=== PATIENT | male | born 1990 | race Caucasian/White ===

== ENCOUNTER → 2016-05-14 | Outpatient (CLI) | payer OTHER ==
[~2016-05-14] MED LIST: LACT3000 PO
--- NOTE | 2016-05-14 15:12 | DIAGNOSTIC IMAGING REPORT ---
MRI OF THE LEFT HIP WITHOUT IV CONTRAST CLINICAL HISTORY: Left hip pain of several months duration. COMPARISON STUDY: Pelvic CT dated 09/01/2013 with pelvic and hip radiographs dated 04/01/2016. TECHNIQUE: MRI of the left hip is performed utilizing various T1 and T2-weighted sequences in the axial and coronal planes. IV contrast was not administered for this examination. FINDINGS: Normal marrow signal intensity is preserved throughout the visualized bony structures. There is no MRI evidence of fracture or osteonecrosis involving the proximal femora. The visualized bony pelvis is normal in appearance. No destructive bony lesion is seen. No hip joint effusion is identified. There is no greater trochanteric or iliopsoas bursitis. The origin of the hamstrings tendons is maintained. The musculature of the pelvis and upper thigh is normal in bulk and signal intensity. The pelvic viscera is normal as imaged. There is no pelvic sidewall or inguinal lymphadenopathy. IMPRESSION: Unremarkable MRI of the left hip. Dictated: 05/14/2016 3:04 PM Transcribed: 05/14/2016 3:12 PM [email or web address]_Tre Electronically signed by: Trevor Reed M.D. 05/14/2016 3:16 PM Dictated Date/Time: 05/14/2016 3:04 PM
== END | disposition home or self-care (01) ==
LOC: C.MRI 14:13
PROVIDERS: ATTEND Family Medicine Sports Medicine
DX: M25.552 Pain in left hip (principal)

== ENCOUNTER → 2017-04-02 | Outpatient (CLI) | payer OTHER ==
[2017-04-02 17:07] LABS: URINE APPEARANCE CLEAR (CLEAR); URINE BILIRUBIN NEG (NEG); URINE COLOR YELLOW; URINE EPITHELIAL CELL AUTO 0-5 /lpf (0-5); URINE NITRITE NEG (NEG); URINE SPECIFIC GRAVITY 1.024 (1.000-1.030); UROBILINOGEN NEG (NEG)
[2017-04-02 17:12] LABS: MANUAL MICROSCOPIC REQUIRED? NO; REVIEW REQ? NO
[2017-04-02 17:33] LABS: LYME DISEASE AB IGG NEG (NEG); LYME DISEASE AB IGM NEG (NEG)
[2017-04-06 02:05] LABS: CHLAMYDIA TRACH RNA*** NOT DETECTED (NOT DETECTED); GC (NEIS GONORRHOEAE)RNA** NOT DETECTED (NOT DETECTED)
== END | disposition home or self-care (01) ==
LOC: C.LABBFT 15:14
PROVIDERS: ATTEND Internal Medicine
DX: N45.1 Epididymitis (principal); T14.8XXA Other injury of unspecified body region, initial encounter; W57.XXXA Bitten or stung by nonvenomous insect and other nonvenomous arthropods, initial encounter

== ENCOUNTER 2022-02-23 07:16 | Observation (INO) ==
[2022-02-23] MEDS ORDERED: ONDANSETRON INJ 2 MG/ML 2 ML VIAL IV STA (07:30)
[2022-02-23] MEDS ORDERED: MoRPHine SULFATE 10 MG/ML CARP/VIAL IV STA (07:30)
[2022-02-23] MEDS ORDERED: SODIUM CHLORIDE 0.9% 1000ML 1,000 ML IV STA (07:30)
--- NOTE | 2022-02-23 07:56 | Emergency Department Note ---
History of Present Illness General Chief complaint: Abdominal Pain Stated complaint: SEVERE LWR RIGHT ABDOMINAL PAIN Time Seen by Provider: 02/23/22 07:21 History of Present Illness Maximum Pain Intensity: 7 31-year-old male who presents to the emergency department with complaint of severe right lower quadrant abdominal pain. The patient reports that the pain started last evening, and has progressively worsened. He describes it as a sharp constant pain with nausea and chills. The pain is worse with ambulation. He felt every bump at the road on the way to the emergency department. He denies any significant alleviating factors for his pain. He reports that it feels like he has to constantly defecate. He denies any change in stool bowel, color or consistency. He also denies any left-sided abdominal pain, back pain or urinary symptoms. Patient denies history of GI disease. He rates his discomfort a 7 out of 10. Home Medications Medication Instructions Recorded Confirmed Type gabapentin 400 mg capsule 400 mg PO TID 02/23/22 02/23/22 History Allergies Allergy/AdvReac Type Severity Reaction Status Date / Time No Known Allergies Allergy Verified 10/01/21 14:09 Past Med/Surg History Medical History Chronic back pain TO RIGHT LEG History of COVID-19 diagnosed 02/2020-URGENT CARE-MILD SYMPTOMS, RECOVERED AT HOME-no issues now Surgical History History of colonoscopy with polypectomy last 2018 History of esophagogastroduodenoscopy (EGD) History of wisdom tooth extraction S/P epidural steroid injection Family History Unknown Pure hypercholesterolemia Father Tuberculosis Obesity Mother Thyroid disorder Grandfather Gastrointestinal disorder Grandfather (Maternal) Family history of diabetes mellitus Family hx of colon cancer Grandfather (Paternal) Family history of diabetes mellitus Other No family history of adverse response to anesthesia Social History Smoking Status: Never smoker Second Hand Exposure: No; Hx Alcohol Use: Yes Alcohol type: beer Hx Substance Use: No Preferred Language: Persian Communication Ability: Effective Arborist Required: No Beliefs That Will Affect Care: None Current Living Situation: Alone current occupational status: employed Feels Safe at Home: Yes Assistive Devices: None Review of Systems 10 system review was performed and was negative except for pertinent positives and negatives as indicated in history of present illness Physical Exam Vital Signs Vital Signs - 24 hr 02/23/22 07:17 02/23/22 07:49 02/23/22 08:00 Temperature 36.8 C Temperature Source Temporal Artery Scan Pulse Rate 84 62 Pulse Rate [Right Finger] Pulse Rhythm [Right Finger] Pulse Strength [Right Finger] Respiratory Rate 18 18 Respiratory Effort / Characteristics Non-Labored Spontaneous Respiratory Depth Normal Respiratory Pattern Regular Blood Pressure 124/79 122/84 Blood Pressure [Right Arm] Blood Pressure Mean 94 96 Blood Pressure Mean [Right Arm] Blood Pressure Position Sitting Blood Pressure Position [Right Arm] Pulse Oximetry 96 96 Oxygen Delivery Method Room Air Room Air Sepsis Recent Fever Within 48 Hours No Sepsis New/Unexplained Change in Mental Status N/A Sepsis Action Taken by Nursing No Action Required 02/23/22 08:00 02/23/22 08:15 02/23/22 08:30 Temperature Temperature Source Pulse Rate 76 70 66 Pulse Rate [Right Finger] Pulse Rhythm [Right Finger] Pulse Strength [Right Finger] Respiratory Rate 13 15 15 Respiratory Effort / Characteristics Respiratory Depth Respiratory Pattern Blood Pressure Blood Pressure [Right Arm] Blood Pressure Mean Blood Pressure Mean [Right Arm] Blood Pressure Position Blood Pressure Position [Right Arm] Pulse Oximetry 93 96 97 Oxygen Delivery Method Room Air Room Air Room Air Sepsis Recent Fever Within 48 Hours Sepsis New/Unexplained Change in Mental Status Sepsis Action Taken by Nursing 02/23/22 08:45 02/23/22 09:08 02/23/22 09:15 Temperature Temperature Source Pulse Rate 58 L 84 63 Pulse Rate [Right Finger] Pulse Rhythm [Right Finger] Pulse Strength [Right Finger] Respiratory Rate 16 22 16 Respiratory Effort / Characteristics Respiratory Depth Respiratory Pattern Blood Pressure Blood Pressure [Right Arm] Blood Pressure Mean Blood Pressure Mean [Right Arm] Blood Pressure Position Blood Pressure Position [Right Arm] Pulse Oximetry 97 Oxygen Delivery Method Room Air Sepsis Recent Fever Within 48 Hours Sepsis New/Unexplained Change in Mental Status Sepsis Action Taken by Nursing 02/23/22 09:30 02/23/22 10:16 02/23/22 10:30 Temperature Temperature Source Pulse Rate 56 L 67 61 Pulse Rate [Right Finger] Pulse Rhythm [Right Finger] Pulse Strength [Right Finger] Respiratory Rate 13 12 13 Respiratory Effort / Characteristics Respiratory Depth Respiratory Pattern Blood Pressure Blood Pressure [Right Arm] Blood Pressure Mean Blood Pressure Mean [Right Arm] Blood Pressure Position Blood Pressure Position [Right Arm] Pulse Oximetry 97 93 Oxygen Delivery Method Room Air Room Air Room Air Sepsis Recent Fever Within 48 Hours Sepsis New/Unexplained Change in Mental Status Sepsis Action Taken by Nursing 02/23/22 11:00 02/23/22 11:30 02/23/22 12:00 Temperature Temperature Source Pulse Rate 69 66 78 Pulse Rate [Right Finger] Pulse Rhythm [Right Finger] Pulse Strength [Right Finger] Respiratory Rate 15 14 16 Respiratory Effort / Characteristics Respiratory Depth Respiratory Pattern Blood Pressure Blood Pressure [Right Arm] Blood Pressure Mean Blood Pressure Mean [Right Arm] Blood Pressure Position Blood Pressure Position [Right Arm] Pulse Oximetry 98 99 99 Oxygen Delivery Method Room Air Room Air Room Air Sepsis Recent Fever Within 48 Hours Sepsis New/Unexplained Change in Mental Status Sepsis Action Taken by Nursing 02/23/22 13:00 Temperature 36.7 C Temperature Source Oral Pulse Rate Pulse Rate [Right Finger] 96 H Pulse Rhythm [Right Finger] Regular Pulse Strength [Right Finger] Normal Respiratory Rate 20 Respiratory Effort / Characteristics Non-Labored Spontaneous Respiratory Depth Normal Respiratory Pattern Regular Blood Pressure Blood Pressure [Right Arm] 137/83 Blood Pressure Mean Blood Pressure Mean [Right Arm] 101 Blood Pressure Position Blood Pressure Position [Right Arm] Semi-fowlers Pulse Oximetry 98 Oxygen Delivery Method Room Air Sepsis Recent Fever Within 48 Hours Sepsis New/Unexplained Change in Mental Status Sepsis Action Taken by Nursing CONSTITUTIONAL: Healthy and well nourished. Patient appears in moderate discomfort from pain. HEENT: No scleral icterus or conjunctival injection/pallor. RESPIRATORY: Clear to auscultation bilaterally with no wheezing, crackles, rhonchi or stridor. CARDIOVASCULAR: Regular rate and rhythm with no murmurs, rubs or gallops. GASTROINTESTINAL: Bowel sounds present in all quadrants. Patient has a dramatically positive McBurney's point tenderness. Negative Rovsing sign. Positive psoas/obturator sign and heeltap. Negative CVA tenderness. No abd ominal rigidity, guarding or rebound. MUSCULOSKELETAL: Full range of motion of all joints without discomfort. INTEGUMENTARY: No rash or other significant dermatologic conditions noted. HEMATOLOGIC: No ecchymosis or petechiae. PSYCHIATRIC: Positive affect. NEUROLOGIC: No focal neurologic deficits noted. Course Course Patient history and physical exam were performed. Nurses notes were reviewed. Vital signs were reviewed and were normal. IV access was established, labs were drawn. The patient was administered IV morphine and Zofran. He was also hydrated with a liter of normal saline. Review of labs shows a white count of almost 13,000 with left shift and 7% bands. CMP and lipase were grossly normal. The patient was initially unable to provide a urine sample for urinalysis. CT with IV contrast of the abdomen and pelvis shows an uncomplicated appendicitis. After returning from CT scan, the patient was administered additional IV Dilaudid for pain control. The patient was advised of his CT findings. COVID- 19 test was ordered. Findings were discussed with Dr. Landon, ED physician, and Dr. Goldman, general surgeon on-call. Please see Dr. Goldman's dictation for further treatment and final disposition. Administered Medications Discontinued Medications Bupivacaine HCl (Bupivacaine 0.5 % 5 Mg/1 Ml Mpf 30ml Vial) Confirm Administered Dose 30 ml .ROUTE .STK-MED ONE Stop: 02/23/22 12:52 Last Admin: 02/23/22 14:19 Dose: 14 ml Documented By: SANCHEZ Hydromorphone HCl (Hydromorphone Inj 0.5 Mg/0.5 Ml Syr) 0.5 mg IV NOW STA Stop: 02/23/22 09:21 Last Admin: 02/23/22 10:16 Dose: 0.5 mg Documented By: JANNET Sodium Chloride (Nss 1000ml) 1,000 mls @ 999 mls/hr IV .Q1H1M STA Stop: 02/23/22 08:30 Last Infusion: 02/23/22 08:54 Dose: 0 mls/hr Documented By: Admin: 02/23/22 07:47 Dose: 999 mls/hr Documented By: JANNET Cefoxitin Sodium (Mefoxin) 2,000 mg in 60 mls @ 100 mls/hr IV NOW ONE Stop: 02/23/22 11:35 Last Infusion: 02/23/22 12:12 Dose: 0 mls/hr Documented By: Admin: 02/23/22 11:25 Dose: 100 mls/hr Documented By: JANNET Ioversol (Optiray 350 100ml) 94 ml IV ONCE ONE Stop: 02/23/22 09:04 Last Admin: 02/23/22 09:04 Dose: 94 ml Documented By: LISA Morphine Sulfate (Morphine Sulfate 10 Mg/Ml Carp/Vial) 6 mg IV NOW STA Stop: 02/23/22 07:31 Last Admin: 02/23/22 07:48 Dose: 6 mg Documented By: JANNET Ondansetron HCl (Ondansetron Inj 2 Mg/Ml 2 Ml Vial) 4 mg IV NOW STA Stop: 02/23/22 07:31 Last Admin: 02/23/22 07:47 Dose: 4 mg Documented By: JANNET Medical Decision Making Medical Records Attestation: I reviewed the patient's medical records. Home Medications Current Medication List: was personally reviewed by me Laboratory Data Attestation: I reviewed the patient's lab results. Result diagrams: 02/23/22 07:45 02/23/22 07:45 Lab Results 02/23/22 02/23/22 Range/Units 07:45 07:45 WBC 12.98 H (4.8-10.8) K/ul RBC 4.94 (4.63-6.08) M/uL Hgb 15.1 (14.0-18.0) g/dl Hct 44.6 (40.1-51.0) % MCV 90.3 (80.0-100.0) fL MCH 30.6 (25.0-34.0) pg MCHC 33.9 (32.0-36.0) g/dL RDW Std Deviation 39.6 (36.4-46.3) fL RDW Coeff of Monico 12.1 (11.5-14.5) % Plt Count 227 (130-400) K/uL MPV 9.5 (9.4-12.4) fL Immature Gran % (Auto) 0.5 % Neut % (Auto) 78.4 % Lymph % (Auto) 13.1 % Antelope % (Auto) 7.1 % Eos % (Auto) 0.5 % Baso % (Auto) 0.4 % Neut # (Auto) 10.17 H (1.4-6.5) K/uL Lymph # (Auto) 1.70 (1.2-3.4) K/uL Antelope # (Auto) 0.92 H (0.24-0.82) K/uL Eos # (Auto) 0.07 (0-0.50) K/uL Baso # (Auto) 0.05 (0-0.2) K/uL Immature Gran # (Auto) 0.07 H (0.00-0.02) K/uL Sodium 138 (136-145) mmol/L Potassium 4.1 (3.5-5.1) mmol/L Chloride 101 (98-107) mmol/L Carbon Dioxide 32 (21-32) mmol/L Anion Gap 5 (3-11) BUN 19 (6-23) mg/dl Creatinine 0.95 (0.6-1.4) mg/dl Est Cr Clr Drug Dosing 128.4 ml/min Est GFR ( Amer) 124.9 ml/min Est GFR (Non-Af Amer) 107.7 ml/min BUN/Creatinine Ratio 20.0 (10-20) Glucose 109 H (70-99(Fasting)) mg/dl Calcium 9.5 (8.5-10.1) mg/dl Total Bilirubin 0.6 (0.2-1.0) mg/dl AST 20 (13-39) U/L ALT 10 (7-52) U/L Alkaline Phosphatase 66 (34-104) U/L Total Protein 7.6 (6.0-8.3) gm/dl Albumin 4.4 (3.4-5.0) gm/dl Globulin 3.2 (2.5-4.0) gm/dl Albumin/Globulin Ratio 1.4 (0.9-2) Lipase 14 (11-82) U/L Imaging Data Attestation: I personally reviewed and interpreted this imaging study as follows: My Impression: My interpretation of a CT with IV contrast of the abdomen pelvis shows evidence for an uncomplicated appendicitis without perforation or abscess formation. Radiologist report was also reviewed. Radiologist's Impression: Abdomen/Pelvis CT 02/23/22 07:30 CT OF THE ABDOMEN AND PELVIS WITH CONTRAST CLINICAL HISTORY: Right lower quadrant abdominal pain. COMPARISON STUDY: Abdominal series April 18, [address] of the abdomen and pelvis September 01, 2013. TECHNIQUE: Following IV administration of 94 mL of Optiray, axial images of the abdomen and pelvis were obtained from the lung bases to the proximal femurs. I mages were reviewed in the axial, sagittal, and coronal planes. IV contrast was administered without complication. Automated exposure control was utilized for the study. A dose lowering technique was utilized adhering to the principles of ALARA. CT DOSE: 421.43 mGy.cm FINDINGS: Lung bases are unremarkable. There is no pneumatosis, free air or portal venous gas is present. There is borderline splenomegaly. Liver, adrenal glands, kidneys and pancreas are unremarkable. Is no hydronephrosis. There is no evidence for a bowel obstruction. Caliber and wall thickness of small and large bowel are normal. Prominent perirectal vessels are unchanged. The appendix is mildly dilated and fluid-filled, measuring 1 cm in caliber. There is an appendicolith within the base of the appendix. There is mild periappendiceal stranding. There is no free air or abscess. IMPRESSION: Findings consistent with acute appendicitis. No free air or abscess. ACT 112: Negative or not required by law. Electronically signed by: Simon King M.D. 02/23/2022 9:47 AM Blood Pressure Blood Pressure Findings: Normal blood pressure MDM Narrative Patient presents emergency department with classic symptoms consistent with acute appendicitis. CT imaging does verify this diagnosis. Patient does have a mild leukocytosis with left shift and bandemia. He is afebrile. Clinical exam is not concerning for generalized peritonitis. Additional laboratory studies are not consistent with cholecystitis, hepatitis or pancreatitis. At the time of this dictation, urinalysis was still pending, however symptoms are not consistent with UTI. Impression & Plan Acute appendicitis, Acute abdominal pain in right lower quadrant Discharge Plan Visit Data Chief Complaint: Abdominal Pain Stated Complaint: SEVERE LWR RIGHT ABDOMINAL PAIN ED Provider: Barney Landon ED Midlevel Provider: Marco Antonio Flores Discharge Problem: Acute appendicitis, Acute abdominal pain in right lower quadrant Discharge Instructions Interventions: ED Discharge Assessment Last Done: 02/23/22 13:27
[2022-02-23 07:57] LABS: Basophils # (auto) 0.05 K/uL (0-0.2); Basophils % (auto) 0.4 %; Eosinophils # (auto) 0.07 K/uL (0-0.50); Eosinophils % (auto) 0.5 %; Hematocrit (blood only) 44.6 % (40.1-51.0); Hemoglobin 15.1 g/dl (14.0-18.0); Immature Granulocytes # (auto) 0.07 K/uL (0.00-0.02); Immature Granulocytes % (auto) 0.5 %; Lymphocytes % (auto) 13.1 %; Mean Corpuscular Hemoglobin 30.6 pg (25.0-34.0); Mean Corpuscular Hgb Conc 33.9 g/dL (32.0-36.0); Mean Corpuscular Volume 90.3 fL (80.0-100.0); Mean Platelet Volume 9.5 fL (9.4-12.4); Monocytes # (auto) 0.92 K/uL (0.24-0.82); Monocytes % (auto) 7.1 %; Neutrophils # (auto) 10.17 K/uL (1.4-6.5); Neutrophils % (auto) 78.4 %; Platelet Count 227 K/uL (130-400); RDW Coefficient of Variation 12.1 % (11.5-14.5); RDW Standard Deviation 39.6 fL (36.4-46.3); Red Blood Count 4.94 M/uL (4.63-6.08); White Blood Count 12.98 K/ul (4.8-10.8)
[2022-02-23 08:21] LABS: Albumin Globulin Ratio 1.4 (0.9-2); Albumin Level 4.4 gm/dl (3.4-5.0); Bilirubin,Total 0.6 mg/dl (0.2-1.0); Calcium 9.5 mg/dl (8.5-10.1); Creatinine Clr Calc Pharmacy 128.4 ml/min; Est GFR (African American) 124.9 ml/min; Est GFR (Non-African American) 107.7 ml/min; Globulin 3.2 gm/dl (2.5-4.0); Potassium 4.1 mmol/L (3.5-5.1); Total Protein 7.6 gm/dl (6.0-8.3)
[2022-02-23] MEDS ORDERED: OPTIRAY 350 100ml IV ONE (09:03)
[2022-02-23] MEDS ORDERED: HYDROmorphone INJ 0.5 MG/0.5 ML SYR IV STA (09:20)
--- NOTE | 2022-02-23 09:49 | CT Scan Report ---
CT OF THE ABDOMEN AND PELVIS WITH CONTRAST CLINICAL HISTORY: Right lower quadrant abdominal pain. COMPARISON STUDY: Abdominal series April 18, [address] of the abdomen and pelvis September 01, 2013. TECHNIQUE: Following IV administration of 94 mL of Optiray, axial images of the abdomen and pelvis we re obtained from the lung bases to the proximal femurs. Images were reviewed in the axial, sagittal, and coronal planes. IV contrast was administered without complication. Automated exposure control wa s utilized for the study. A dose lowering technique was utilized adhering to the principles of ALARA . CT DOSE: 421.43 mGy.cm FINDINGS: Lung bases are unremarkable. There is no pneumatosis, free air or portal venous gas is pres ent. There is borderline splenomegaly. Liver, adrenal glands, kidneys and pancreas are unremarkable. Is no hydronephrosis. There is no evidence for a bowel obstruction. Caliber and wall thickness of sma ll and large bowel are normal. Prominent perirectal vessels are unchanged. The appendix is mildly dil ated and fluid-filled, measuring 1 cm in caliber. There is an appendicolith within the base of the ap pendix. There is mild periappendiceal stranding. There is no free air or abscess. IMPRESSION: Findings consistent with acute appendicitis. No free air or abscess. ACT 112: Negative or not required by law. Electronically signed by: Simon King M.D. 02/23/2022 9:47 AM
[2022-02-23 10:33] LABS: Appearance Urine Clear (Clear); Bilirubin Urine Negative (Negative); Blood Urine Negative (Negative); Color Urine Yellow; Glucose Urine UA Negative (Negative); Ketones Urine 1+ (Negative); Leukocyte Esterase Urine Negative (Negative); Nitrite Urine Negative (Negative); Protein Urine Negative (Negative); Specific Gravity Urine > 1.045 (1.000-1.030); Urobilinogen Urine Negative (Negative)
[2022-02-23] MEDS ORDERED: cefOXitin 2,000 MG/60 ML BAG IV ONE (11:00)
[2022-02-23] MEDS ORDERED: HYDROmorphone INJ 1 MG/ML SYRINGE IV PRN (12:50)
[2022-02-23] MEDS ORDERED: fentaNYL citrate 100 MCG/2 ML VIAL IV PRN (12:50)
[2022-02-23] MEDS ORDERED: ePHEDrine sulfate 50 MG/ML AMP IV PRN (12:50)
[2022-02-23] MEDS ORDERED: LABETALOL HCL IV 5 MG/ML 20ML IV PRN (12:50)
[2022-02-23] MEDS ORDERED: PHENYLEPHRINE 100MCG/ML 5ML SYR IV PRN (12:50)
[2022-02-23] MEDS ORDERED: MEPERIDINE HCL 25 MG/ML CARP/VIAL IV PRN (12:50)
[2022-02-23] MEDS ORDERED: ONDANSETRON INJ 2 MG/ML 2 ML VIAL IV PRN ×2 (12:50→15:43)
[2022-02-23] MEDS ORDERED: ATROPINE SULFATE 0.1 MG/ML 10ML SYR IV PRN (12:50)
[2022-02-23] MEDS ORDERED: BUPIVACAINE 0.5 % 5 MG/1 ML MPF 30ML VIAL ONE (12:51)
--- NOTE | 2022-02-23 12:53 | Anesthesiology Consultation ---
Date of Service February 23, 2022 Assessment & Plan (1) Encounter for pre-operative examination: Chart Review Chart Review: Acceptable Risk for Surgery and Patient NOT seen in Pre Admission Testing Consults Requested none History Surgery Operation Date: 02/23/22 12:20 Proposed Procedures p Laparoscopic Appendectomy - Kel Goldman MD Height/Weight Height: 5 ft 10 in Weight: 88.3 kg Allergies Allergy/AdvReac Type Severity Reaction Status Date / Time No Known Allergies Allergy Verified 10/01/21 14:09 Medications Home Medications Medication Instructions Recorded Confirmed Last Taken gabapentin 400 mg capsule 400 mg PO TID 02/23/22 02/23/22 Unknown Past Medical History Medical History Chronic back pain TO RIGHT LEG History of COVID-19 diagnosed 02/2020-URGENT CARE-MILD SYMPTOMS, RECOVERED AT HOME-no issues now Past Family History Family History Unknown Pure hypercholesterolemia Father Tuberculosis Obesity Mother Thyroid disorder Grandfather Gastrointestinal disorder Grandfather (Maternal) Family history of diabetes mellitus Family hx of colon cancer Grandfather (Paternal) Family history of diabetes mellitus Other No family history of adverse response to anesthesia Past Surgical History Surgical History History of colonoscopy with polypectomy last 2018 History of esophagogastroduodenoscopy (EGD) History of wisdom tooth extraction S/P epidural steroid injection Social History Smoking Status: Never smoker Hx Alcohol Use: Yes Alcohol type: beer alcohol intake frequency: a few times a month Hx Substance Use: No substance use type: does not use Physical Exam Vital Signs Last Vital Signs Temp 36.8 C 02/23/22 07:17 Pulse 78 02/23/22 12:00 Resp 16 02/23/22 12:00 BP 122/84 02/23/22 08:00 Pulse Ox 99 02/23/22 12:00 O2 Del Method 02/23/22 12:00 Testing Laboratory Results 02/23/22 07:45 02/23/22 07:45 Urine Color Yellow 02/23/22 Unknown Urine Appearance Clear (Clear) 02/23/22 Unknown Urine pH 6.0 (4.5-7.5) 02/23/22 Unknown Ur Specific Grethel > 1.045 (1.000-1.030) H 02/23/22 Unknown Urine Protein Negative (Negative) 02/23/22 Unknown Urine Glucose (UA) Negative (Negative) 02/23/22 Unknown Urine Ketones 1+ (Negative) H 02/23/22 Unknown Urine Nitrite Negative (Negative) 02/23/22 Unknown Ur Leukocyte Esterase Negative (Negative) 02/23/22 Unknown
[2022-02-23] MEDS ORDERED: MIDAZOLAM HCL 1 MG/ML 2ML VIAL ONE (12:57)
[2022-02-23] MEDS ORDERED: fentaNYL citrate 100 MCG/2 ML VIAL ONE ×2 (12:57→12:58)
--- NOTE | 2022-02-23 13:00 | History & Physical Report ---
Date of Service February 23, 2022 Assessment & Plan (1) Acute appendicitis: Plan 31-year-old gentleman with acute appendicitis. Discussed the risks and benefits of laparoscopic appendectomy, possible open. All his questions were answered, he is agreeable to proceed. Consent has been obtained. We will take him to the operating room at the earliest convenience. History of Present Illness Primary Care Provider: Alberto Tinsley MD 31-year-old gentleman presents with right lower quadrant abdominal pain beginning last night at 11 PM. He states that this is worsened throughout the night and into this morning. It was accompanied by fevers and chills. He did have nausea and vomiting. He denies any diarrhea or constipation. He has never had abdominal surgery. He recently had a surgery on his back. He denies any other complaints. Allergies Allergy/AdvReac Type Severity Reaction Status Date / Time No Known Allergies Allergy Verified 10/01/21 14:09 Home Medications Medication Instructions Recorded Confirmed Type gabapentin 400 mg capsule 400 mg PO TID 02/23/22 02/23/22 History Past Med/Surg History Medical History Chronic back pain TO RIGHT LEG History of COVID-19 diagnosed 02/2020-URGENT CARE-MILD SYMPTOMS, RECOVERED AT HOME-no issues now Surgical History History of colonoscopy with polypectomy last 2018 History of esophagogastroduodenoscopy (EGD) History of wisdom tooth extraction S/P epidural steroid injection Family History Unknown Pure hypercholesterolemia Father Tuberculosis Obesity Mother Thyroid disorder Grandfather Gastrointestinal disorder Grandfather (Maternal) Family history of diabetes mellitus Family hx of colon cancer Grandfather (Paternal) Family history of diabetes mellitus Other No family history of adverse response to anesthesia Social History Smoking Status: Never smoker Second Hand Exposure: No; Hx Alcohol Use: Yes Alcohol type: beer Hx Substance Use: No Preferred Language: Romanian Communication Ability: Effective 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 Beliefs That Will Affect Care: None Current Living Situation: Alone current occupational status: employed Feels Safe at Home: Yes Assistive Devices: None Review of Systems Review of Systems: All systems reviewed & are unremarkable except as noted in HPI & below Physical Exam Constitutional: WD/WN, vitals as above Eyes: PERRL, conjunctivae normal, anicteric sclerae Neck: trachea midline, no thyromegaly Respiratory: normal respiratory effort, lungs clear to auscultation Cardiovascular: RRR, no murmur, no edema Gastrointestinal (Abdomen): Inspection/Auscultation: abdomen normal to inspection; abdomen not distended Percussion/Palpation: + abdomen tender (Diffusely; maximal in right lower quadrant) and abdomen soft; no guarding and abdomen not rigid Skin: no rashes, warm and dry Psychiatric: A+Ox3, euthymic affect Results & Data Results & Data ([facility]) Vital Signs (Past 12 Hours) Vital Signs Temp Pulse Resp BP Pulse Ox O2 Del Method 02/23/22 12:00 78 16 99 Room Air 02/23/22 11:30 66 14 99 Room Air 02/23/22 11:00 69 15 98 Room Air 02/23/22 10:30 61 13 93 Room Air 02/23/22 10:16 67 12 97 Room Air 02/23/22 09:30 56 L 13 Room Air 02/23/22 09:15 63 16 02/23/22 09:08 84 22 02/23/22 08:45 58 L 16 97 Room Air 02/23/22 08:30 66 15 97 Room Air 02/23/22 08:15 70 15 96 Room Air 02/23/22 08:00 76 13 93 Room Air 02/23/22 08:00 122/84 02/23/22 07:49 62 18 96 Room Air 02/23/22 07:17 36.8 C 84 18 124/79 96 Room Air Laboratory Results 02/23/22 02/23/22 02/23/22 Range/Units Unknown Unknown 07:45 WBC (4.8-10.8) K/ul RBC (4.63-6.08) M/uL Hgb (14.0-18.0) g/dl Hct (40.1-51.0) % MCV (80.0-100.0) fL MCH (25.0-34.0) pg MCHC (32.0-36.0) g/dL RDW Std Deviation (36.4-46.3) fL RDW Coeff of Monico (11.5-14.5) % Plt Count (130-400) K/uL MPV (9.4-12.4) fL Immature Gran % (Auto) % Neut % (Auto) % Lymph % (Auto) % [place] % (Auto) % Eos % (Auto) % Baso % (Auto) % Neut # (Auto) (1.4-6.5) K/uL Lymph # (Auto) (1.2-3.4) K/uL [place] # (Auto) (0.24-0.82) K/uL Eos # (Auto) (0-0.50) K/uL Baso # (Auto) (0-0.2) K/uL Immature Gran # (Auto) (0.00-0.02) K/uL Sodium 138 (136-145) mmol/L Potassium 4.1 (3.5-5.1) mmol/L Chloride 101 (98-107) mmol/L Carbon Dioxide 32 (21-32) mmol/L Anion Gap 5 (3-11) BUN 19 (6-23) mg/dl Creatinine 0.95 (0.6-1.4) mg/dl Est Cr Clr Drug Dosing 128.4 ml/min Est GFR ( Amer) 124.9 ml/min Est GFR (Non-Af Amer) 107.7 ml/min BUN/Creatinine Ratio 20.0 (10-20) Glucose 109 H (70-99(Fasting)) mg/dl Calcium 9.5 (8.5-10.1) mg/dl Total Bilirubin 0.6 (0.2-1.0) mg/dl AST 20 (13-39) U/L ALT 10 (7-52) U/L Alkaline Phosphatase 66 (34-104) U/L Total Protein 7.6 (6.0-8.3) gm/dl Albumin 4.4 (3.4-5.0) gm/dl Globulin 3.2 (2.5-4.0) gm/dl Albumin/Globulin Ratio 1.4 (0.9-2) Lipase 14 (11-82) U/L Urine Color Yellow Urine Appearance Clear (Clear) Urine pH 6.0 (4.5-7.5) Ur Specific [place] > 1.045 H (1.000-1.030) Urine Protein Negative (Negative) Urine Glucose (UA) Negative (Negative) Urine Ketones 1+ H (Negative) Urine Blood Negative (Negative) Urine Nitrite Negative (Negative) Urine Bilirubin Negative (Negative) Urine Urobilinogen Negative (Negative) Ur Leukocyte Esterase Negative (Negative) SARS-CoV-2, RNA, NAAT NEGATIVE (NEGATIVE) 02/23/22 Range/Units 07:45 WBC 12.98 H (4.8-10.8) K/ul RBC 4.94 (4.63-6.08) M/uL Hgb 15.1 (14.0-18.0) g/dl Hct 44.6 (40.1-51.0) % MCV 90.3 (80.0-100.0) fL MCH 30.6 (25.0-34.0) pg MCHC 33.9 (32.0-36.0) g/dL RDW Std Deviation 39.6 (36.4-46.3) fL RDW Coeff of Monico 12.1 (11.5-14.5) % Plt Count 227 (130-400) K/uL MPV 9.5 (9.4-12.4) fL Immature Gran % (Auto) 0.5 % Neut % (Auto) 78.4 % Lymph % (Auto) 13.1 % [place] % (Auto) 7.1 % Eos % (Auto) 0.5 % Baso % (Auto) 0.4 % Neut # (Auto) 10.17 H (1.4-6.5) K/uL Lymph # (Auto) 1.70 (1.2-3.4) K/uL [place] # (Auto) 0.92 H (0.24-0.82) K/uL Eos # (Auto) 0.07 (0-0.50) K/uL Baso # (Auto) 0.05 (0-0.2) K/uL Immature Gran # (Auto) 0.07 H (0.00-0.02) K/uL Sodium (136-145) mmol/L Potassium (3.5-5.1) mmol/L Chloride (98-107) mmol/L Carbon Dioxide (21-32) mmol/L Anion Gap (3-11) BUN (6-23) mg/dl Creatinine (0.6-1.4) mg/dl Est Cr Clr Drug Dosing ml/min Est GFR ( Amer) ml/min Est GFR (Non-Af Amer) ml/min BUN/Creatinine Ratio (10-20) Glucose (70-99(Fasting)) mg/dl Calcium (8.5-10.1) mg/dl Total Bilirubin (0.2-1.0) mg/dl AST (13-39) U/L ALT (7-52) U/L Alkaline Phosphatase (34-104) U/L Total Protein (6.0-8.3) gm/dl Albumin (3.4-5.0) gm/dl Globulin (2.5-4.0) gm/dl Albumin/Globulin Ratio (0.9-2) Lipase (11-82) U/L Urine Color Urine Appearance (Clear) Urine pH (4.5-7.5) Ur Specific [place] (1.000-1.030) Urine Protein (Negative) Urine Glucose (UA) (Negative) Urine Ketones (Negative) Urine Blood (Negative) Urine Nitrite (Negative) Urine Bilirubin (Negative) Urine Urobilinogen (Negative) Ur Leukocyte Esterase (Negative) SARS-CoV-2, RNA, NAAT (NEGATIVE) Diagnostic Findings CT OF THE ABDOMEN AND PELVIS WITH CONTRAST CLINICAL HISTORY: Right lower quadrant abdominal pain. COMPARISON STUDY: Abdominal series April 18, [address] of the abdomen and pelvis September 01, 2013. TECHNIQUE: Following IV administration of 94 mL of Optiray, axial images of the abdomen and pelvis were obtained from the lung bases to the proximal femurs. Images were reviewed in the axial, sagittal, and coronal planes. IV contrast was administered without complication. Automated exposure control was utilized for the study. A dose lowering technique was utilized adhering to the principles of ALARA. CT DOSE: 421.43 mGy.cm FINDINGS: Lung bases are unremarkable. There is no pneumatosis, free air or portal venous gas is present. There is borderline splenomegaly. Liver, adrenal glands, kidneys and pancreas are unremarkable. Is no hydronephrosis. There is no evidence for a bowel obstruction. Caliber and wall thickness of small and large bowel are normal. Prominent perirectal vessels are unchanged. The appendix is mildly dilated and fluid-filled, measuring 1 cm in caliber. There is an appendicolith within the base of the appendix. There is mild periappendiceal stranding. There is no free air or abscess. IMPRESSION: Findings consistent with acute appendicitis. No free air or abscess.
[2022-02-23] MEDS ORDERED: ACETAMINOPHEN 1000 MG/100 ML IV IV ONE (13:08)
[2022-02-23] MEDS ORDERED: FAMOTIDINE/PF 20 MG/2 ML VIAL IV ONE (13:11)
[2022-02-23] MEDS ORDERED: DEXAMETHASONE SOD INJ 4 MG/ML VIAL ONE (14:10)
[2022-02-23] MEDS ORDERED: PROPOFOL IV EMULSION 10 MG/ML 20 ML VIAL IV ONE (14:10)
[2022-02-23] MEDS ORDERED: ROCURONIUM BROMIDE 10 MG/ML 5 ML VIAL IV ONE (14:10)
[2022-02-23] MEDS ORDERED: LIDOCAINE 2% MPF LOCAL 5 ML VIAL INFIL ONE (14:10)
[2022-02-23] MEDS ORDERED: GLYCOPYRROLATE 0.2 MG/ML VIAL ONE (14:10)
[2022-02-23] MEDS ORDERED: NEOSTIGMINE METHYLSULFATE 1 MG/ML 10ML VIAL ONE (14:10)
[2022-02-23] MEDS ORDERED: ONDANSETRON INJ 2 MG/ML 2 ML VIAL ONE (14:10)
--- NOTE | 2022-02-23 14:19 | Post Operative Brief Note ---
Immediate Post Op Note v1 Date of Surgery February 23, 2022 Pre & Post Diagnosis Operation Date: 02/23/22 12:20 Pre-Op Diagnosis: Acute appendicitis Post-Op Diagnosis: Acute appendicitis I identified the patient and participated in the time-out.: Yes Procedure Operation Date: 02/23/22 12:20 Actual Procedures p Laparoscopic Appendectomy(Not Applicable) - Yuan Currie MD Surgeon Yuan Currie MD Trust [employer] Estates Attorney none Estimated Blood Loss 5 Findings Consistent with Post-Op Diagnosis Drains Sandy Catheter (16 Serbian 10mL balloon sandy inserted prior to begining of procedure by Zulma Kent RN)
--- NOTE | 2022-02-23 14:20 | Operative Report ---
Post Operative Report Pre & Post Diagnosis Operation Date: 02/23/22 12:20 Pre-Op Diagnosis: Acute appendicitis Post-Op Diagnosis: Acute appendicitis I identified the patient and participated in the time-out.: Yes Procedure Operation Date: 02/23/22 12:20 Actual Procedures p Laparoscopic Appendectomy(Not Applicable) - Yuan Currie MD Surgeon Yuan Currie MD Novel[employer] none Estimated Blood Loss 5 Findings Consistent with Post-Op Diagnosis Acute appendicitis without perforation Specimens Appendix Drains None Anesthesia Type General Complications No immediate complications Description of Procedure The patient was taken to the operating room, and placed supine on the operating table. A timeout was performed, perioperative antibiotics were administered, SCD boots were placed. After adequate anesthesia and analgesia was obtained, the abdomen was prepped and draped in the normal sterile fashion. A 1 cm incision was made in the supraumbilical region and carried down to the level of the fascia. A trach hook was used to grasp the fascia and elevated and a varies needle was used to enter the abdominal cavity. The abdomen was insufflated to a pressure of 15 mmHg, and a 5 mm trocar was placed in this location. A 5 mm 30 degree laparoscope was placed into the abdominal cavity, and the abdomen was surveyed. The patient was placed in Trendelenburg and slightly to the left. One 5 mm trocar was placed in the right upper quadrant, and one 12 mm trocar was placed in the left lower quadrant under direct visualization. The right colon was identified and traced down to the cecum. The appendix was identified and elevated anteriorly and medially. A window was created at the base of the appendix with a [place] dissector. The Endo ALEXANDRA stapler was used to transect the appendix at its base through noninflamed tissue, and subsequently the mesoappendix. The appendix was placed in an Endo Catch bag, and removed via the left lower quadrant port site. Attention was turned to hemostasis, which was excellent. The abdomen was copiously irrigated and suctioned free, and again hemostasis was found to be excellent. All trochars removed under direct visualization. The abdomen was desufflated. The fascia in the 12 mm port site was closed with a 0 Vicryl suture. The skin was closed with a running 4-0 Monocryl subcuticular stitch. Dermabond was applied. The patient tolerated the procedure without complication, and was transferred in stable condition to the PACU. All instrument, needle, and sponge counts were correct at the end of the case. I attest to the content of the Intraoperative Record and any orders documented therein. Any exceptions are noted below.
[2022-02-23] MEDS ORDERED: KETOROLAC 30 MG/ML VIAL ONE (14:27)
--- NOTE | 2022-02-23 15:05 | Anesthesiology Progress Note ---
Date of Service February 23, 2022 Anesthesia Post Procedure Vital Signs Vital Signs: Temp Pulse Pulse Pulse Resp BP BP 02/23/22 15:00 94 H 15 138/95 02/23/22 14:50 103 H 13 127/83 02/23/22 14:40 92 H 12 137/82 02/23/22 14:30 36.3 C L 114 H 18 135/85 02/23/22 13:00 36.7 C 96 H 20 02/23/22 12:00 78 16 02/23/22 11:30 66 14 02/23/22 11:00 69 15 02/23/22 10:30 61 13 02/23/22 10:16 67 12 02/23/22 09:30 56 L 13 02/23/22 09:15 63 16 02/23/22 09:08 84 22 02/23/22 08:45 58 L 16 02/23/22 08:30 66 15 02/23/22 08:15 70 15 02/23/22 08:00 76 13 02/23/22 08:00 122/84 02/23/22 07:49 62 18 02/23/22 07:17 36.8 C 84 18 124/79 BP Pulse Ox O2 Del Method O2 Flow Rate 02/23/22 15:00 98 Room Air 02/23/22 14:50 100 Oxymask 5 02/23/22 14:40 100 Oxymask 5 02/23/22 14:30 99 Oxymask 5 02/23/22 13:00 137/83 98 Room Air 02/23/22 12:00 99 Room Air 02/23/22 11:30 99 Room Air 02/23/22 11:00 98 Room Air 02/23/22 10:30 93 Room Air 02/23/22 10:16 97 Room Air 02/23/22 09:30 Room Air 02/23/22 09:15 02/23/22 09:08 02/23/22 08:45 97 Room Air 02/23/22 08:30 97 Room Air 02/23/22 08:15 96 Room Air 02/23/22 08:00 93 Room Air 02/23/22 08:00 02/23/22 07:49 96 Room Air 02/23/22 07:17 96 Room Air Transfer of Care Handoff Completed per policy Notes Mental Status: alert / awake / arousable Patient Amnestic to Procedure: Yes Nausea / Vomiting: adequately controlled Pain: adequately controlled Airway Patency, RR, SpO2: stable & adequate BP & HR: stable & adequate Hydration State: stable & adequate Anesthetic Complications: no major complications apparent and Pt Satisfied with anesthetic care
[2022-02-23] MEDS ORDERED: KETOROLAC 30 MG/ML VIAL IV PRN (15:43)
[2022-02-23] MEDS ORDERED: MoRPHine SULFATE 2 MG/ML CARP IV PRN (15:43)
[2022-02-23] MEDS ORDERED: diphenhydrAMINE Capsule 25 MG CAP PO PRN (15:43)
[2022-02-23] MEDS ORDERED: Nursing to Pharmacy Communication SCH (17:15)
[2022-02-23] MEDS ORDERED: COUGH DROP (SUGAR FREE) LOZ 24 LOZ/1 BOX BUCCAL PRN (18:26)
[2022-02-23] MEDS: oxyCODONE/ACETAMINOPHEN 5mg/325mg TAB PO PRN (19:34)
[2022-02-23] MEDS: GABAPENTIN 400 MG CAP PO SCH (21:20)
[2022-02-24] MEDS: oxyCODONE/ACETAMINOPHEN 5mg/325mg TAB PO PRN ×2 (03:24→07:49)
[2022-02-24] MEDS ORDERED: ACETAMINOPHEN 325 MG TAB PO PRN (07:22)
[2022-02-24] MEDS: GABAPENTIN 400 MG CAP PO SCH (07:50)
[2022-02-24] MEDS ORDERED: ENOXAPARIN INJ 40 MG/0.4 ML SYR SQ SCH (08:00)
--- NOTE | 2022-02-24 09:55 | Discharge Summary ---
Date of Service February 24, 2022 Admission HPI Per Admitting Provider 31-year-old gentleman presents with right lower quadrant abdominal pain beginning last night at 11 PM. He states that this is worsened throughout the night and into this morning. It was accompanied by fevers and chills. He did have nausea and vomiting. He denies any diarrhea or constipation. He has never had abdominal surgery. He recently had a surgery on his back. He denies any other complaints. Principal Diagnosis Acute appendicitis Discharge Exam Constitutional WD/WN, vitals as above cooperative and comfortable; no acute distress and not ill appearing Respiratory normal respiratory effort, lungs clear to auscultation Cardiovascular RRR, no murmur, no edema Gastrointestinal (Abdomen) Inspection/Auscultation: abdomen normal to inspection, + abdominal surgical incision (clean/dry/intact with Dermabond) and + hypoactive bowel sounds; abdomen not distended and + abnormal bowel sounds Percussion/Palpation: + abdomen tender (at incision sites, appropriate postop) and abdomen soft; no guarding and abdomen not rigid Skin no rashes, warm and dry Psychiatric A+Ox3, euthymic affect Discharge Data Allergies Allergy/AdvReac Type Severity Reaction Status Date / Time No Known Allergies Allergy Verified 10/01/ 14:09 Procedures Performed Operation Date: 02/23/22 12:20 Actual Procedures p Laparoscopic Appendectomy(Not Applicable) - Yuan Currie MD Ordered Studies 02/23/22 07:30 CT abd pelvis IV con only Stat Hospital Course (1) Acute appendicitis: Plan Patient taken to operating room for laparoscopic appendectomy by Dr. Currie. Patient found to have acute appendicitis without perforation or abscess. Patient transferred to medical/surgical floor for postop care. Diet advanced as tolerated, PO Percocet as needed for pain, activity as tolerated, SCDs and lovenox for DVT Prophylaxis. POD # 1 afebrile, vss, postop pain controlled and preop pain resolved. Tolerated advancement of diet. Urinating without difficulty. Ambulating in room. Patient was dicharged home in morning of POD # 1 in stable condition. Total Time Total Time Spent Total Time Spent (In Minutes): 20 minutes Total Time Includes: Examination of the Patient, Discharge Planning and Medication Reconciliation Discharge Plan Discharge Items Patient Disposition: Home - Self-Care Reason For Visit: POSTOP STATUS POST LAP APPENDECTOMY FOR APPENDICIT Discharge Diagnosis: Acute appendicitis Activity: Per Instructions section Non-emergency contact: Primary Care Provider and Surgeon Call non-emergency contact if: you have any medication questions, your pain is not controlled, you have a fever, your temperature is above 101, your wound has increased redness, your wound has increased drainage and your wound pain has increased Follow-up/Referrals: Alberto Tinsley MD [Primary Care Provider] - Yuan Currie MD [Physician] - (Follow-up Dr. Currie or Osiris Cortez in 2 weeks) Diet: Regular Addtl Attending Provider Instructions: Post-Surgical ~Discharge Instructions Activity Recommendations: - lifting limitation: (20 pounds for 4 weeks), - exercise/sex/sports limit: (nonstrenuous for 2 weeks), - driving or machine use limit: (none for 1 week), - Shower/bathe limit: (may shower beginning tomorrow) Diet: - Resume previous diet SPECIAL CARE INSTRUCTIONS: - May shower. Let water run over area and pat dry. No submerging incisions underwater for 2 weeks - Leave Dermabond in place. - Call the surgeon's office with any questions or concerns - - (ex. temperature higher than 101 degrees F, excessive bleeding or pain). MEDICATIONS: - Resume previous medications unless instructed otherwise by your surgeon. - May alternate extra strength Tylenol and Ibuprofen as needed for mild to moderate pain - 650 mg Tylenol every 6 hours as needed - Ibuprofen 600 mg every 6 hours as needed with food - Percocet 1 every 6 hours, as needed for moderate to severe pain, take as directed - Recommend stool softener (Colace) daily while taking narcotic pain medication to prevent constipation or straining. Drink plenty of water daily. FOLLOW UP VISIT: - If not already scheduled, please call the office to schedule a two week follow-up appointment. Office number Pending Studies at Discharge: Yes (appendix pathology, will be reviewed at postop visit) Stand-Alone Forms: My [employer], Work/School Release, Smoking C essation Medications and DC Order Prescriptions: New oxycodone-acetaminophen 5-325 mg tablet 1 tab PO Q6H PRN (Reason: pain) Qty: 10 0RF Continued gabapentin 400 mg capsule 400 mg PO TID Discharge Orders: Discharge Order (Routine); Ordered 02/24/22 Ordered By: Osiris Hill Admission Data Admit Date/Time: 02/23/22 14:23 Attending Provider: Yuan Currie Admit Provider: Yuan Currie Primary Care Provider: Alberto Tinsley
== END 2022-02-24 10:47 | disposition home or self-care (01) ==
LOC: ED 07:16 → OR 13:27 → PACUINP 13:27 → 3E 13:27
DX: K35.80 Unspecified acute appendicitis